=== PATIENT | male | born 1965 | race Hispanic/Latino ===

== ENCOUNTER 2022-02-04 06:56 | Day surgery (SDC) | payer OTHER ==
[2022-01-30 13:14] LABS: HEMATOCRIT 38.8 % (42-54); MEAN CORPUSCULAR VOLUME 83.3 fL (79-99); RED BLOOD CELL COUNT(AUTO) 4.66 MIL/uL (4.50-6.20); WHITE BLOOD COUNT (AUTO) 11.3 K/uL (4.8-10.8)
[2022-01-30 13:15] LABS: BASOPHILS % (AUTO) 0.5 % (0.0-5.0); EOSINOPHILS % (AUTO) 2.9 % (0.0-8.0); MEAN CORPUSCULAR HEMOGLOBIN 28.3 pg (27.0-33.0); MONOCYTES % (AUTO) 9.2 % (3.0-13.0); NEUTROPHILS % (AUTO) 68.1 % (40.0-77.0); PLATELET COUNT (AUTO) 279 K/uL (130-400); RED CELL DISTRIBUTION WIDTH 13.2 % (11.0-15.5)
[2022-01-30 13:34] LABS: CREATININE 1.4 mg/dL (0.5-1.5)
[2022-01-30 13:35] LABS: INR 0.98 (0.85-1.15); PROTHROMBIN TIME 10.7 SEC (9.6-11.6)
[2022-01-30 13:36] LABS: PARTIAL THROMBOPLASTIN TIME 28.1 SEC (26.3-35.5)
[2022-02-03 13:11] VITALS: BP 180/92
[~2022-02-04] VITALS: Ht 180.3 cm; Wt 102.9 kg
[~2022-02-04 06:56] MED LIST: AMLO-257 PO; ASPI-1443 PO; ATOR-2 PO; CARV12.511 PO; CEFAZOLIN SODIUM 2 GM VIAL IV SCH; CLOP75TA32 PO; LISI20TA24 PO; METF-446 PO; SPIR25TA6 PO
[2022-02-04] MEDS ORDERED: 0.9%NACL 1000ML 1,000 ML IV ONE (06:57)
[2022-02-04 07:11] LABS: BASOPHILS % (AUTO) 0.7 % (0.0-5.0); HEMATOCRIT 39.3 % (42-54); LYMPHOCYTES % (AUTO) 19.3 % (21.0-51.0); MEAN CORPUSCULAR HEMOGLOBIN 27.7 pg (27.0-33.0); MEAN CORPUSCULAR HGB CONC 33.6 g/dL (32.0-36.0); MEAN CORPUSCULAR VOLUME 82.4 fL (79-99); MONOCYTES % (AUTO) 10.3 % (3.0-13.0); NEUTROPHILS % (AUTO) 65.4 % (40.0-77.0); PLATELET COUNT (AUTO) 279 K/uL (130-400); RED BLOOD CELL COUNT(AUTO) 4.77 MIL/uL (4.50-6.20); RED CELL DISTRIBUTION WIDTH 13.2 % (11.0-15.5); WHITE BLOOD COUNT (AUTO) 10.8 K/uL (4.8-10.8)
[2022-02-04] MEDS ORDERED: CEFAZOLIN SODIUM 1 GM VIAL ONE (09:28)
[2022-02-04] MEDS ORDERED: MIDAZOLAM HCL 1 MG/ML 2ML VIAL ONE ×3 (09:28→10:56)
[2022-02-04] MEDS ORDERED: MEPERIDINE-PF 25 MG/ML SYG ONE ×3 (09:29→10:56)
[2022-02-04] MEDS ORDERED: LIDOCAINE HCL 1% MDV 50ML VIAL ONE (09:29)
[2022-02-04] MEDS ORDERED: BUPIVACAINE/PF 0.25% 30ML VIAL IJ ONE (10:17)
[2022-02-04] MEDS ORDERED: IOHEXOL-350 50ML VIAL IV ONE (10:53)
[2022-02-04] MEDS ORDERED: ACETAMINOPHEN WITH CODEINE 1 TAB TAB PO PRN (11:30)
[2022-02-04] MEDS ORDERED: TRAM50TA4 PO (11:36)
[2022-02-04 11:50] VITALS: BP 148/86
[2022-02-04 12:15] VITALS: BP 138/84
[2022-02-04 12:30] VITALS: BP 142/85
[2022-02-04 12:45] VITALS: BP 149/90
[2022-02-04 13:45] VITALS: BP 150/94
[2022-02-04 14:21] VITALS: BP 157/89
== END 2022-02-04 14:25 | disposition home or self-care (01) ==
LOC: DAH 06:56
PROVIDERS: ATTEND Internal Medicine Cardiovascular Disease
DX: I25.5 Ischemic cardiomyopathy (principal); I11.0 Hypertensive heart disease with heart failure; I50.42 Chronic combined systolic (congestive) and diastolic (congestive) heart failure; I44.0 Atrioventricular block, first degree; I25.10 Atherosclerotic heart disease of native coronary artery without angina pectoris; E11.9 Type 2 diabetes mellitus without complications; E78.5 Hyperlipidemia, unspecified; F17.210 Nicotine dependence, cigarettes, uncomplicated; Z79.84 Long term (current) use of oral hypoglycemic drugs; Z79.82 Long term (current) use of aspirin; Z79.899 Other long term (current) drug therapy; Z86.73 Personal history of transient ischemic attack (TIA), and cerebral infarction without residual deficits; Z98.890 Other specified postprocedural states; Z79.01 Long term (current) use of anticoagulants; Z82.49 Family history of ischemic heart disease and other diseases of the circulatory system; Z83.3 Family history of diabetes mellitus; Z80.9 Family history of malignant neoplasm, unspecified
CPT/HCPCS: 33249; 36415 ×2; 71045; 80048; 82948 ×2; 85025 ×2; 85610; 85730; 93005; A4215; A4216; A4221; A4222; A4223 ×3; A4606; A4663; A6251; A6258; C1722; C1895; J0690; J2175 ×2; J2250 ×2; J3490 ×2; J7030; Q9967; 99156; 99157